=== PATIENT | male | born 1965 | race Caucasian/White ===

== ENCOUNTER 2016-10-27 10:13 | Emergency (ER) | payer OTHER ==
[2016-10-27] MEDS ORDERED: 0.9 % SODIUM CHLORIDE 1,000 ML IV ONE (11:08)
[2016-10-27 11:15] LABS: BASOPHILS % 0.7 (0.0-1.5); EOSINOPHILS % 1.8 % (0.0-6.8); LYMPHOCYTES # 3.1 # k/uL (0.6-4.0); MEAN CORPUSCULAR HEMOGLOBIN 31.4 pg (28.0-34.0); MONOCYTES # 0.6 # k/uL (0.0-0.9); MONOCYTES % 5.7 % (0.0-11.0); NEUTROPHILS # 6.3 # k/uL (1.4-7.7)
[2016-10-27 11:26] LABS: eGFR (African) > 60; eGFR (Non-African) > 60
[2016-10-27] MEDS ORDERED: 0.9 % SODIUM CHLORIDE 1,000 ML IV SCH (11:30)
[2016-10-27 13:15] VITALS: BP 139/66
--- NOTE | 2016-10-27 13:44 | Diagnostic Imaging Report ---
CYRUS NAVA [facility] [address] [facility] [address] [address] Report Submission Date: Oct 27, 2016 12:25:46 PM GARMENT PRESSER Patient Study Name: RUTH ANN CANO Date: Oct 27, 2016 11:44:57 AM GARMENT PRESSER Modality Type: CT\SR Gender: M Description: CT ABD & PELVIS W/ CON : 67 Institution: [facility] Physician: CYRUS NAVA CT of the abdomen and pelvis with contrast Clinical history: Near-syncope after eating. Contrast administered: 89 ml of Omnipaque. Technique: CT of the abdomen and pelvis is performed following intravenous administration of contrast. Sagittal and coronal reconstructions are performed by the technologist. Findings: The visualized lung bases are clear. The liver and spleen demonstrate normal attenuation without focal defect. The gallbladder is contracted. There is no pancreatic or adrenal abnormality. The kidneys demonstrate symmetric enhancement. There is no retroperitoneal mass or significant adenopathy. Vascular calcification is present in the abdominal aorta without evidence of aneurysm. The appendix is visualized and is within normal limits. The bladder is unremarkable. Prostatic calcifications are incidentally noted. There is no free fluid in the pelvis or abdomen. Impression: 1. Vascular calcification. 2. Contracted gallbladder. 3. Negative appendix. Electronically signed on Oct 27, 2016 12:25:46 PM GARMENT PRESSER by: Chaz CHACKO
--- NOTE | 2016-10-27 13:44 | Diagnostic Imaging Report ---
CYRUS NAVA [facility] [address] [facility] [address] [place] [address]. [id number] Report Submission Date: Oct 27, 2016 12:23:04 PM BLACK ASH BURNER OPERATOR Patient Study Name: RUTH ANN CANO Date: Oct 27, 2016 11:40:03 AM BLACK ASH BURNER OPERATOR Modality Type: CT\SR Gender: M Description: CT BRAIN W/O CONTRAST : 67 Institution: [facility] Physician: CYRUS NAVA Head CT without contrast Clinical history: Near-syncope after eating. Technique: CT examination of the brain is performed in contiguous axial slices with sagittal and coronal reconstructions. Findings: The fourth ventricle lies in a normal midline position. The ventricles and sulci are within normal limits. There is no hypodense or hyperdense mass or intracranial hemorrhage. Intracranial atherosclerosis is demonstrated. The visualized paranasal sinuses and the mastoid air cells are clear. Impression: 1. Intracranial atherosclerosis. 2. No acute intracranial changes. Electronically signed on Oct 27, 2016 12:23:04 PM BLACK ASH BURNER OPERATOR by: Chaz CHACKO
--- NOTE | 2016-10-27 19:57 | ED Physician Documentation ---
General Adult - HISTORIAN Historian: patient - HPI Stated Complaint: Weakness Chief Complaint: General Adult Additional Information: weakness while eating for years, ate syrup and pancakes Onset: minutes (20) Timing: still present Severity: moderate Context: always with eating Further Comments: no - ROS CONST: weakness EYES/ENT: none CVS/RESP: none GI/: none MS/SKIN/LYMPH: none NEURO/PSYCH: denies: headache, fainting, dizziness, tingling, numbness - PAST HX Past History: none Other History: none Surgeries/Procedures: none Immunizations: other Allergies/Adverse Reactions: Allergies Allergy/AdvReac Type Severity Reaction Status Date / Time No Known Allergies Allergy Unverified 10/27/16 10:23 Home Medications: Ambulatory Orders Medication Instructions Recorded NK [NK] 10/27/16 - SOCIAL HX Smoking History: cigarettes Alcohol Use: none Drug Use: marijuana - FAMILY HX Family History: No - VITAL SIGNS Vital Signs: Vital Signs Temp Pulse Resp BP Pulse Ox 97 F L 62 16 139/66 99 10/27/16 10:15 10/27/16 13:14 10/27/16 13:14 10/27/16 13:14 10/27/16 13:14 - REVIEWED ASSESSMENTS Nursing Assessment Reviewed: Yes Vitals Reviewed: Yes Progress - Results/Orders Results/Orders: cbc, cmp, ua, ct abdomen, ct head ordered, amylase ordered - Progress Progress: pt. given 1 liter ns in er, feels very well by time of discharge Critical Care Note - Critical Care Note Total Time (mins): 0 ED Results Lab/Radiology - Lab Results Lab Results: Lab Results 10/27/16 10/27/16 11:10 11:10 WBC 10.40 K/ul K/ul (4.00-12.00) RBC 5.08 M/ul M/ul (3.90-5.20) Hgb 16.0 g/dL g/dL (12.0-18.0) Hct 48.2 % % (37.0-53.0) MCV 94.8 fl fl (80.0-100.0) MCH 31.4 pg pg (28.0-34.0) MCHC 33.2 g/dL g/dL (30.0-36.0) RDW 12.5 % % (11.3-14.3) Plt Count 277 K/mm3 K/mm3 (130-400) Neut % (Auto) 60.2 % % (39.0-79.0) Lymph % (Auto) 29.4 % % (16.0-50.0) Atkinson % (Auto) 5.7 % % (0.0-11.0) Eos % (Auto) 1.8 % % (0.0-6.8) Baso % (Auto) 0.7 (0.0-1.5) Neut # 6.3 # k/uL # k/uL (1.4-7.7) Lymph # 3.1 # k/uL # k/uL (0.6-4.0) Atkinson # 0.6 # k/uL # k/uL (0.0-0.9) Eos # 0.2 # k/uL # k/uL (0.0-0.6) Baso # 0.1 # k/uL # k/uL (0.0-0.5) Reactive Lymphs % 2.3 % % (0.0-5.0) Reactive Lymphs # 0.2 # k/uL # k/uL (0.0-0.8) Sodium 143 mmol/L mmol/L (136-145) Potassium 3.9 mmol/L mmol/L (3.5-5.0) Chloride 98 mmol/L mmol/L (98-110) Carbon Dioxide 31 mmol/L mmol/L (20-32) BUN 15 mg/dL mg/dL (10-26) Creatinine 0.8 mg/dL mg/dL (0.4-1.5) Estimated Creat Clear 113 Est GFR ( Amer) > 60 (60 - ) Est GFR (Non-Af Amer) > 60 (60 - ) Glucose 83 mg/dL mg/dL (70-99) Calcium 9.6 mg/dL mg/dL (8.5-10.5) Total Bilirubin 0.5 mg/dL mg/dL (0.2-1.2) AST 17 U/L U/L (0-41) ALT 18 U/L U/L (0-45) Alkaline Phosphatase 52 U/L U/L (46-116) Total Protein 7.4 g/dL g/dL (6.0-8.5) Albumin 4.7 g/dL g/dL (3.0-5.5) Amylase 64 U/L U/L (20-104) - Radiology Radiology Impressions: ct neg - Orders Orders: ED Orders Category Date Time Status Place Saline Lock/IV Now Care 10/27/16 11:[address] ABD & PELVIS W/ CON Routine Exams 10/27/16 11:[address] BRAIN W/O CONTRAST Stat Exams 10/27/16 Completed AMYLASE Routine Lab 10/27/16 11:10 Completed CBC/PLATELET/DIFF Routine Lab 10/27/16 11:10 Completed CMP Routine Lab 10/27/16 11:10 Completed URINALYSIS Routine Lab 10/27/16 11:05 Ordered 0.9 % Sodium Chloride [Normal Saline] 1,000 ml Med 10/27/16 11:30 Discontinued IV .Q1H 0.9 % Sodium Chloride [Normal Saline] 1,000 ml Med 10/27/16 11:08 Discontinued IV .STK-MED EKG WITH COMPARISON Routine Ther 10/27/16 Ordered General Adult Physical Exam - PHYSICAL EXAM GENERAL APPEARANCE: no distress EENT: eye inspection normal, ENT inspection normal, pharynx normal, no signs of dehydration, MAURO, no nystagmus, TM's nml NECK: normal inspection, thyroid normal, supple RESPIRATORY: no resp distress, chest non-tender, breath sounds normal CVS: reg rate & rhythm, heart sounds normal, equal pulses, no murmur, no gallop , PMI nml, no JVD, no friction rub ABDOMEN: soft, no organomegaly, normal bowel sounds, no abdominal bruit, no distension, non-tender BACK: normal inspection, no CVA tenderness SKIN: warm/dry, normal color EXTREMITIES: non-tender, normal range of motion, no evidence of injury, no edema NEURO: oriented X3, CN's nml as tested, motor nml, sensation nml, mood/affect nml, cognition normal Discharge Clincal Impression: Hypoglycemia Referrals: Primary Doctor,No [Primary Care Provider] - 2 Days Home Medications: Ambulatory Orders NK [NK] 10/27/16 Comments: Discharged with hypoglycemic dietary instructions Condition: Stable Disposition: 01 HOME, SELF-CARE Decision to Admit: NO Decision Time: 13:10
== END 2016-10-27 13:14 | disposition home or self-care (01) ==
LOC: ED 10:13
DX: E16.2 Hypoglycemia, unspecified (principal)
CPT/HCPCS: 70450; 74177; 80053; 82150; 85025; 93005; J7030; Q9966; 96360; 96361; 99283; 99284; S1016

== ENCOUNTER 2016-11-13 07:20 | Outpatient (CLI) | payer OTHER | END 2016-11-13 07:22 | LOC: LAB 07:20 | PROVIDERS: ATTEND Nurse Practitioner Family | DX: E16.2 Hypoglycemia, unspecified (principal) | CPT/HCPCS: 36415; 82951; 82952 ==